=== PATIENT | male | born 1950 | race Caucasian/White ===

== ENCOUNTER 2019-12-11 10:05 | Outpatient (CLI) | payer MEDICARE, OTHER, SELFPAY ==
[2019-12-11 13:24] LABS: Basophils Percent Auto 0.4 % (0.2-1.2); Eosinophils Absolute Auto 0.2 K/mm3 (0-0.3); Eosinophils Percent Auto 2.8 % (0-4.4); Hematocrit 42.7 % (42.0-52.0); Hemoglobin 15.1 g/dL (14.0-18.0); Immature Granulocyte Absolute 0.01 K/mm3 (0.00-0.031); Immature Granulocyte Percent A 0.2 % (0-0.5); Lymphocytes Absolute Auto 1.58 K/mm3 (0.9-3.2); Lymphocytes Percent Auto 29.6 % (18.3-44.2); Mean Corpuscular HGB Conc 35.4 g/dl (32-36); Mean Corpuscular Hemoglobin 34.3 pg (26-34); Monocytes Absolute Auto 0.5 K/mm3 (0.1-0.6); Monocytes Percent Auto 8.6 % (2.6-8.5); Neutrophils Absolute Auto 3.1 K/mm3 (1.3-6.7); Neutrophils Percent Auto 58.4 % (45.5-73.1); Platelet Count Result 200 k/mm3 (150-375); Red Cell Distribution Width 12.4 % (11.5-14.5); White Blood Count 5.3 K/mm3 (4.5-10.0)
[2019-12-11 13:27] LABS: Hemoglobin A1C 5.1 % (<5.7)
== END 2019-12-11 10:06 | disposition home or self-care (01) ==
DX: R79.9 Abnormal finding of blood chemistry, unspecified (principal); I10 Essential (primary) hypertension; Z12.5 Encounter for screening for malignant neoplasm of prostate
CPT/HCPCS: 36415; 83036; 85025

== ENCOUNTER 2019-12-17 15:02 | Outpatient (CLI) | payer MEDICARE, OTHER, SELFPAY ==
[2019-12-17 16:11] LABS: Alanine Aminotransferase 40 U/L (4-50); Albumin Level 4.8 g/dL (3.5-5.1); Alkaline Phosphatase 73 U/L (38-126); Aspartate Amino Transferase 37 U/L (17-59); Blood Urea Nitrogen 25 mg/dL (9-20); Calcium 8.9 mg/dL (8.4-10.2); Carbon Dioxide 25 mmol/L (22-30); Chloride 107 mmol/L (98-107); Estimated Glomerular Filt Rate > 60; Glucose 143 mg/dL (75-110); Potassium 3.6 mmol/L (3.4-5.0); Sodium 140 mmol/L (137-145)
[2019-12-17 16:42] LABS: Prostate Specific Antigen 1.5 ng/mL (< OR = 4.0)
== END 2019-12-17 15:03 | disposition home or self-care (01) ==
DX: I10 Essential (primary) hypertension (principal); Z12.5 Encounter for screening for malignant neoplasm of prostate
CPT/HCPCS: 36415; 80053; 84153; G0103

== ENCOUNTER 2020-04-14 08:12 | Outpatient (CLI) | payer MEDICARE, OTHER, SELFPAY ==
[2020-04-14 08:39] LABS: Alanine Aminotransferase 57 U/L (4-50); Aspartate Amino Transferase 42 U/L (17-59); Cholesterol 211 mg/dL (0-200); HDL Direct 46 mg/dL; Triglycerides 159 mg/dL (<150)
[2020-04-14 08:50] LABS: LDL Cholesterol Direct 133 mg/dL
== END 2020-04-14 08:13 | disposition home or self-care (01) ==
DX: E78.5 Hyperlipidemia, unspecified (principal); I10 Essential (primary) hypertension; I71.2 Thoracic aortic aneurysm, without rupture
CPT/HCPCS: 36415; 80061; 84450; 84460

== ENCOUNTER 2020-12-24 08:37 | Outpatient (CLI) | payer MEDICARE, OTHER, SELFPAY ==
[2020-12-24 08:56] LABS: Hematocrit 45.5 % (42.0-52.0); Hemoglobin 15.9 g/dL (14.0-18.0); Mean Corpuscular HGB Conc 34.9 g/dl (32-36); Mean Corpuscular Hemoglobin 33.8 pg (26-34); Mean Corpuscular Volume 96.8 fl (80-100); Mean Platelet Volume 9.3 fl (7.4-10.4); Platelet Count Result 190 k/mm3 (150-375); Red Cell Distribution Width 12.6 % (11.5-14.5)
[2020-12-24 09:06] LABS: Alanine Aminotransferase 46 U/L (4-50); Albumin Level 4.9 g/dL (3.5-5.1); Alkaline Phosphatase 53 U/L (38-126); Anion Gap 10 mmol/L (8-16); Aspartate Amino Transferase 46 U/L (17-59); Bilirubin,Total 1.3 mg/dL (0.2-1.3); Blood Urea Nitrogen 24 mg/dL (9-20); Calcium 9.5 mg/dL (8.4-10.2); Carbon Dioxide 26 mmol/L (22-30); Chloride 107 mmol/L (98-107); Cholesterol 213 mg/dL (0-200); Estimated Glomerular Filt Rate > 60; Glucose 96 mg/dL (75-110); HDL Direct 56 mg/dL; Potassium 4.6 mmol/L (3.4-5.0); Sodium 143 mmol/L (137-145); Triglycerides 135 mg/dL (<150)
[2020-12-24 09:16] LABS: LDL Cholesterol Direct 106 mg/dL
[2020-12-24 09:36] LABS: Prostate Specific Antigen 1.9 ng/mL (< OR = 4.0)
== END 2020-12-24 08:38 | disposition home or self-care (01) ==
LOC: ANHLAB 08:40
PROVIDERS: PCP Family Medicine; Visit Provider Family Medicine
DX: B19.10 Unspecified viral hepatitis B without hepatic coma (principal); E78.5 Hyperlipidemia, unspecified; R53.83 Other fatigue; Z12.5 Encounter for screening for malignant neoplasm of prostate
CPT/HCPCS: 36415; 80053; 80061; 84153; 85027; G0103

== ENCOUNTER 2021-02-03 08:16 | Outpatient (CLI) | payer MEDICARE, OTHER, SELFPAY ==
[2021-02-03 08:47] LABS: Anion Gap 9 mmol/L (8-16); Blood Urea Nitrogen 18 mg/dL (9-20); Calcium 9.4 mg/dL (8.4-10.2); Carbon Dioxide 26 mmol/L (22-30); Chloride 103 mmol/L (98-107); Estimated Glomerular Filt Rate > 60; Glucose 93 mg/dL (65-110); Potassium 4.4 mmol/L (3.4-5.0); Sodium 138 mmol/L (137-145)
== END 2021-02-03 08:17 | disposition home or self-care (01) ==
LOC: ANHLAB 08:18
PROVIDERS: PCP Family Medicine; Visit Provider Physician Assistant Medical
DX: N28.9 Disorder of kidney and ureter, unspecified (principal)
CPT/HCPCS: 36415; 80048

== ENCOUNTER 2021-04-15 08:11 | Outpatient (CLI) | payer MEDICARE, OTHER, SELFPAY ==
[2021-04-15 11:30] LABS: Alanine Aminotransferase 51 U/L (4-50); Aspartate Amino Transferase 44 U/L (17-59); Cholesterol 226 mg/dL (0-200); HDL Direct 46 mg/dL; Triglycerides 198 mg/dL (<150)
[2021-04-15 11:31] LABS: LDL Cholesterol Direct 115 mg/dL
== END 2021-04-15 08:12 | disposition home or self-care (01) ==
PROVIDERS: PCP Family Medicine
DX: E78.5 Hyperlipidemia, unspecified (principal)
CPT/HCPCS: 36415; 80061; 84450; 84460

== ENCOUNTER 2022-04-07 08:32 | Outpatient (CLI) | payer MEDICARE, OTHER, SELFPAY ==
[2022-04-07 09:27] LABS: Alanine Aminotransferase 57 U/L (6-50); Anion Gap 15 mmol/L (8-16); Aspartate Amino Transferase 42 U/L (17-59); Blood Urea Nitrogen 22 mg/dL (9-20); Calcium 9.1 mg/dL (8.4-10.2); Carbon Dioxide 24 mmol/L (22-30); Chloride 105 mmol/L (98-107); Cholesterol 225 mg/dL (0-200); Estimated Glomerular Filt Rate > 60; Glucose 102 mg/dL (65-110); HDL Direct 49 mg/dL; Potassium 3.9 mmol/L (3.4-5.0); Sodium 144 mmol/L (137-145); Triglycerides 101 mg/dL (<150)
[2022-04-07 09:38] LABS: LDL Cholesterol Direct 126 mg/dL
== END 2022-04-07 08:33 | disposition home or self-care (01) ==
LOC: ANHLAB 08:36
PROVIDERS: PCP Family Medicine; Visit Provider Internal Medicine Cardiovascular Disease
DX: E78.5 Hyperlipidemia, unspecified (principal); I10 Essential (primary) hypertension; I35.9 Nonrheumatic aortic valve disorder, unspecified
CPT/HCPCS: 36415; 80048; 80061; 84450; 84460

== ENCOUNTER 2022-07-04 08:15 | Outpatient (CLI) | payer MEDICARE, OTHER, SELFPAY ==
[2022-07-04 08:32] LABS: Hematocrit 42.6 % (42.0-52.0); Hemoglobin 15.3 g/dL (14.0-18.0); Mean Corpuscular HGB Conc 35.9 g/dl (32-36); Mean Corpuscular Hemoglobin 33.9 pg (26-34); Mean Corpuscular Volume 94.5 fl (80-100); Platelet Count Result 184 k/mm3 (150-375); Red Blood Count 4.51 M/mm3 (4.6-6.20); Red Cell Distribution Width 12.4 % (11.5-14.5); White Blood Count 6.5 K/mm3 (4.5-10.0)
[2022-07-04 08:40] LABS: Anion Gap 5 mmol/L (8-16); Blood Urea Nitrogen 17 mg/dL (9-20); Calcium 8.8 mg/dL (8.4-10.2); Carbon Dioxide 29 mmol/L (22-30); Chloride 109 mmol/L (98-107); Estimated Glomerular Filt Rate > 60; Glucose 101 mg/dL (65-110); Potassium 4.3 mmol/L (3.4-5.0); Sodium 143 mmol/L (137-145)
[2022-07-04 09:11] LABS: Prostate Specific Antigen 1.8 ng/mL (< OR = 4.0)
[2022-07-04 09:26] LABS: Vitamin D 25 Hydroxy 52.1 ng/mL
== END 2022-07-04 08:16 | disposition home or self-care (01) ==
PROVIDERS: PCP Family Medicine; Visit Provider Family Medicine
DX: N28.9 Disorder of kidney and ureter, unspecified (principal); E55.9 Vitamin D deficiency, unspecified; Z12.5 Encounter for screening for malignant neoplasm of prostate
CPT/HCPCS: 36415; 80048; 82306; 84153; 85027; G0103

== ENCOUNTER 2023-04-17 08:10 | Outpatient (CLI) | payer MEDICARE, OTHER, SELFPAY ==
[2023-04-17 09:17] LABS: Anion Gap 4 mmol/L (8-16); Blood Urea Nitrogen 20 mg/dL (9-20); Carbon Dioxide 29 mmol/L (22-30); Chloride 106 mmol/L (98-107); Cholesterol 203 mg/dL (0-200); Estimated Glomerular Filt Rate > 60; Glucose 99 mg/dL (65-110); HDL Direct 46 mg/dL; Potassium 4.2 mmol/L (3.4-5.0); Sodium 139 mmol/L (137-145); Triglycerides 142 mg/dL (<150)
[2023-04-17 09:28] LABS: LDL Cholesterol Direct 116 mg/dL
== END 2023-04-17 08:11 | disposition home or self-care (01) ==
PROVIDERS: PCP Family Medicine; Visit Provider Internal Medicine Cardiovascular Disease
DX: I71.20 Thoracic aortic aneurysm, without rupture, unspecified (principal); I10 Essential (primary) hypertension
CPT/HCPCS: 36415; 80048; 80061

== ENCOUNTER 2023-04-19 14:54 | Outpatient (CLI) | payer MEDICARE, OTHER, SELFPAY ==
--- NOTE | ~2023-04-19 | XR_ITS ---
XR foot RT min 3V 04/19/2023 15:10 Indication: Dorsal foot swelling. Foreign body Procedure: 4 views right foot Comparison: No prior studies for comparison. Findings: Osteopenia. 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 Lisfranc join t is intact. There is a degenerative calcaneal enthesophyte. Talar dome is normal. No significant sof t tissue abnormality. Impression: 1: No significant bone or joint abnormality. Reviewed, dictated and finalized at location A. Impression: 1: No significant bone or joint abnormality.
== END 2023-04-19 14:55 | disposition home or self-care (01) ==
PROVIDERS: PCP Family Medicine; Visit Provider Nurse Practitioner Family
DX: M79.5 Residual foreign body in soft tissue (principal)
CPT/HCPCS: 73630

== ENCOUNTER 2023-12-06 08:05 | Outpatient (CLI) | payer MEDICARE, OTHER, SELFPAY ==
[2023-12-06 09:02] LABS: Hematocrit 42.9 % (42.0-52.0); Mean Corpuscular Hemoglobin 33.9 pg (26-34); Mean Corpuscular Volume 97.1 fl (80-100); Mean Platelet Volume 9.9 fl (7.4-10.4); Platelet Count Result 185 k/mm3 (150-375); Red Blood Count 4.42 M/mm3 (4.6-6.20); Red Cell Distribution Width 12.4 % (11.5-14.5); White Blood Count 5.5 K/mm3 (4.5-10.0)
[2023-12-06 09:12] LABS: Alanine Aminotransferase 52 U/L (6-50); Albumin Level 4.8 g/dL (3.5-5.1); Alkaline Phosphatase 62 U/L (38-126); Anion Gap 8 mmol/L (4-12); Aspartate Amino Transferase 41 U/L (17-59); Bilirubin,Total 1.2 mg/dL (0.2-1.3); Blood Urea Nitrogen 23 mg/dL (9-20); Carbon Dioxide 24 mmol/L (22-30); Chloride 108 mmol/L (98-107); Cholesterol 208 mg/dL (0-200); Estimated Glomerular Filt Rate > 60; Glucose 97 mg/dL (65-110); HDL Direct 53 mg/dL; Potassium 4.1 mmol/L (3.4-5.0); Sodium 140 mmol/L (137-145); Triglycerides 108 mg/dL (<150)
[2023-12-06 09:23] LABS: LDL Cholesterol Direct 128 mg/dL
[2023-12-06 09:40] LABS: Prostate Specific Antigen 2.8 ng/mL (< OR = 4.0)
== END 2023-12-06 08:06 | disposition home or self-care (01) ==
PROVIDERS: PCP Family Medicine; Visit Provider Family Medicine
DX: Z12.5 Encounter for screening for malignant neoplasm of prostate (principal); E78.2 Mixed hyperlipidemia; N28.9 Disorder of kidney and ureter, unspecified; N40.0 Benign prostatic hyperplasia without lower urinary tract symptoms; Z13.220 Encounter for screening for lipoid disorders
CPT/HCPCS: 36415; 80048; 80061; 80076; 84153; 85027; G0103

== ENCOUNTER 2024-01-29 11:09 | Outpatient (CLI) | payer MEDICARE, OTHER, SELFPAY ==
[2024-01-29 12:04] LABS: Alanine Aminotransferase 54 U/L (6-50); Albumin Level 4.7 g/dL (3.5-5.1); Alkaline Phosphatase 63 U/L (38-126); Aspartate Amino Transferase 41 U/L (17-59); Bilirubin,Total 0.9 mg/dL (0.2-1.3)
[2024-01-29 12:30] LABS: Hepatitis B Surface Antigen Negative (Negative)
[2024-01-29 12:36] LABS: HAV RESULT Negative (Negative); Hepatitis B Core IgM Result Negative (Negative)
[2024-01-29 12:48] LABS: Hepatitis C Virus Antibody Negative (Negative)
[2024-02-01 09:08] LABS: GGT 55 U/L
== END 2024-01-29 11:10 | disposition home or self-care (01) ==
LOC: ANHLAB 11:14
PROVIDERS: PCP Family Medicine; Visit Provider Family Medicine
DX: R74.01 Elevation of levels of liver transaminase levels (principal); R53.83 Other fatigue
CPT/HCPCS: 36415; 80074; 80076; 82977

== ENCOUNTER 2024-08-18 06:19 | Day surgery (SDC) | payer MEDICARE, OTHER, SELFPAY ==
[2024-07-29 09:08] VITALS: BMI 31.2
--- NOTE | 2024-07-30 10:32 | PC.NURSE ---
During pre-op interview regarding colonoscopy scheduled at [facility] 08/18/24, Pt states PMH to be HTN, high cholesterol, and ascending aortic aneurysm. Pt states had yearly visit with rehabilitation consultant last month and that scan showed no changes to aneurysm size. Pt states it has stayed the same over the years and rehabilitation consultant is monitoring it. No plans for surgery at this time. Pt denies cardiac symptoms. Pt states stopped taking his Ramipril and Pravastatin because he does not believe he needs it. Records from rehabilitation consultant obtained. This RN went over records and pt's pre-op interview information with Dr. Elias who states pt okay to have colonoscopy done at [facility]. This RN informed pt of this and he states no further questions.
--- OUTSIDE RECORDS SUMMARY | 2024-08-18 07:02 | XMS_ITS | Encounter Summary ---
Author Organization [facility] Address [address] [place] [address] Care Team Providers Care Varnisher Plasticoater Name Role Phone Unavailable Primary Care Provider Unavailabl e Encounter Details Date Type Department Care Team (Late st Contact Info) Description 07/05/2023 Lab Requisition [facility] - DermPath Lab [address] [place] [address] Lexii Abbott MD [address] [place] [address] [place] [address] Neoplasm of uncertain behavior of skin; Other disturbances of skin sensation Social History Tobacco Use Types Packs/Day Years Used Date Smoking Tobacco: Never Assessed Sex and Gender Information Value Date Recorded Sex Assigned at Not on file Gender Identity Not on file Sexual Orientation Not on file documented as of this encounter Plan of Treatment Not on file documented as of this encounter Procedures Procedure Name Priority Date/Time Associated Diagnosis Comments DERMATOPATHOLOGY Routine 07/05/2023 3:33 AM FOUR SLIDE MACHINE OPERATOR Neoplasm of uncertain behavior of skin Other disturbances of skin sensation documented in this encounter Results * DERMATOPATHOLOGY (07/05/2023 3:33 AM FOUR SLIDE MACHINE OPERATOR) Case Report Dermatopathology Report Case: [id number] Authorizing Provider: Lexii Abbott MD Collected: 07/05/2023 03:33 AM Ordering Location: [facility] DermPath Lab Received: 07/06/2023 01:09 PM Pathologist: Trudy Yeung MD Specimen: Skin, right dorsal foot 12:43 PM FOUR SLIDE MACHINE OPERATOR DERMATOPATHOLOGY LABORATORY Final Diagnosis Specimen A. SKIN, right dorsal foot: GANGLION CYST, SUPERFICIAL PORTIONS OF (M67.40) (see microscopic description) 12:43 PM [facility] DERMATOPATHOLOGY LABORATORY Clinical History Ganglion Cyst 4 12:43 PM [facility] DERMATOPATHOLOGY LABORATORY Gross Description Specimen A: Received is one formalin filled container labeled with the patient's name and designated right dorsal foot. The specimen consists of two (2) pieces of skin measuring 17x6x3 mm. The specimen is serially sectioned and a senior customer service representative section is submitted in cassette 1. Jar 1. 4 12:43 PM [facility] DERMATOPATHOLOGY LABORATORY Microscopic Description Specimen A. SKIN, right dorsal foot: In the dermis, there is a deposit of mucin surrounded by superficial portions of compressed fibrous tissue. 4 12:43 PM [facility] DERMATOPATHOLOGY LABORATORY Disclaimer An external and internal positive and negative controls are appropriate for the histochemical, immunohistochemical and immunofluorescence stain(s) in this case (if any), except where stated explicitly. The performance characteristics of the stain(s) cited in this report were developed and its performance characteristic determined by the Dermatopathology Laboratory at [facility], directed by Dr. Adrian Dunbar. These tests need not be, and therefore are not, approved by the [place] Food and Drug Administration. The tests are used for clinical purposes. Billing Codes Specimen Charges Stain Charges 78269 1 4 12:43 PM [facility] DERMATOPATHOLOGY LABORATORY Embedded Images 12:43 PM [facility] DERMATOPATHOLOGY LABORATORY Pathology/Cytolo gy TISSUE SPECIMEN FROM SKIN / Unknown 07/05/2023 3:33 AM FOUR SLIDE MACHINE OPERATOR 07/06/2023 1:09 PM FOUR SLIDE MACHINE OPERATOR Lexii Abbott MD LAB - PATHOLOGY/CYTO LOGY ORDERABLES DERMATOPATHOLOGY LABORATORY [facility] - Department of Dermatology [address], [address] [phone] documented in this encounter Visit Diagnoses Diagnosis Neoplasm of uncertain behavior of skin Other disturbances of skin sensation documented in this encounter
--- OUTSIDE RECORDS SUMMARY | 2024-08-18 07:02 | XMS_ITS | Clinical Summary ---
Author Organization [facility] Address [address] [place] [address] Care Team Providers Care Groover And Turner Name Role Phone Ben Flowers MD Unavailable [phone] Ben Flowers MD Primary Care Provider [phone] Allergies Active Allergy Reactions Criticality Noted Date Comments Wild Briceno 11/05/2023 Medications tamsulosin (FLOMAX) 0.4 MG Cap Take 1 capsule (0.4 mg total) by mouth daily. Active Ascorbic Acid (VITAMIN C) 100 MG tablet Take 2.5 tablets (250 mg total) by mouth daily. Active Cyanocobalamin (B-12) 2000 MCG Tab Active vitamin D3, cholecalciferol , 125 mcg capsule Take 1 capsule (125 mcg total) by mouth daily. Active Multiple Vitamin (MULTIVITAMIN ADULT OR) Take 1 tablet by mouth daily. Active HYDROcodone-mihai taminophen (NORCO) 5-325 MG tabletIndicatio ns:Acute Pain < 7 Day Supply Take 1 tablet by mouth every 6 (six) hours as needed for Pain. Indications: Acute Pain < 7 Day Supply 20 tablet 11/13/2023 Active ibuprofen (MOTRIN) 800 MG tablet Take 1 tablet (800 mg total) by mouth every 8 (eight) hours as needed for Pain. 30 tablet 11/13/2023 Active Active Problems No known active problems Social History Tobacco Use Types Packs/Day Years Used Date Smoking Tobacco: Never Smokeless Tobacco: Never Tobacco Cessation:Counseling Given: Not Answered Alcohol Use Standard Drinks/Week Comments Not Currently 0 (1 standard drink = 0.6 oz pur e alcohol) socially Sex and Gender Information Value Date Recorded Sex Assigned at Not on file Legal Sex Male 12:40 PM CDT Gender Identity Not on file Sexual Orientation Not on file Last Filed Vital Signs Vital Sign Reading Time Taken Comments Blood Pressure 154/89 11/13/2023 10:40 AM CDT Pulse 60 11/13/2023 10:40 AM CDT Temperature 36.2 C (97.1 F) 11/13/2023 10:40 AM CDT Respiratory Rate 18 11/13/2023 10:4 0 AM CDT Oxygen Saturation 98% 11/13/2023 10: 40 AM CDT Inhaled Oxygen Concentration - - Weight 104.2 kg (229 lb 11.5 oz) 11/13/2023 7:45 AM CDT Height 182.9 cm (6') 11/05/2023 12:43 PM CDT Body Mass Index 31.16 11/05/2023 12:43 PM CDT Plan of Treatment Health Maintenance Due Date Last Done Comments Colorectal Cancer Screening Colonoscopy (10 Years) 1952 Hepatitis C 1970 DTaP, Tdap and Td Vaccines ( 1 - Tdap) 1971 Zoster Vaccines (1 of 2) 2002 Annual Medicare Wellness Visit 2017 Pneumococcal Vaccine: 65+ Ye ars (1 of 1 - PCV) 2017 COVID-19 Vaccine ( - 2023-2 5 season) 2024 Influenza Adult (#1) 2024 RSV Immunization or 60+ Years (1 - 1-dose 75+ series) 2027 Meningococcal B Vaccine Aged Out No l onger eligible based on patient's age to complete this topic Meningococcal Vaccine Aged Out No kala marianne eligible based on patient's age to complete this topic RSV Immunizations Under 20 Months Aged Out No longer eligible based on patient's age to complete this topic Insurance [facility] MEDICARE Care Teams Groover And Turner Relationship Specialty Start Date End Date Ben Flowers MD [address] [place] [address] PCP - General FAMILY PRACTICE 11/13/23 Ben Flowers MD [address] [address] FAMILY PRACTICE 11/05/23
--- OUTSIDE RECORDS SUMMARY | 2024-08-18 07:02 | XMS_ITS | Continuity of Care Document ---
Author Organization [facility] Address [address] [place] [address] Phone Care Team Providers Care Loom Mechanic Name Role Phone Nolvia Medellin MD Unavailable Unavailable Advance Directives Directive Yes / No Effective Date File Name No Information Encounters Encounter Description Practice Location Reason(s) For Visit Diagnoses Date Provider Providers Copied on Encounter [facility], [address], [place], [place], [id number], tel:[phone] [facility] No Information Lacie De Souza. [address] [place] [address], [id number], . tel:[phone] Family History Family Member Type Diagnosis Age At Onset No Information Payers Payer name Insurance type Covered republican ID Authoriza tion(s) MEDICARE [id number] Social History Type Description Quantity Date Captured [...]
--- OUTSIDE RECORDS SUMMARY | 2024-08-18 07:02 | XMS_ITS | Referral Summary ---
Author Organization [facility] Address [address] [place] [address] Care Team Providers Care Auto Service Mechanic Name Role Phone Unavailable Primary Care Provider Unavailabl e Source Comments [facility],non-owned Affiliates and Associated Physician Practices is amultiple site organization consisting of ambulatory clinics and hospital sitesin [place], [place], [place] and [place]. This disclosure is being madepursuant to the Care Everywhere program and may not contain all information available regarding this patient. Last updated 18.[facility] [employer] Social History Tobacco Use Types Packs/Day Years Used Date Smoking Tobacco: Never Assessed Sex and Gender Information Value Date Recorded Sex Assigned at Not on file Gender Identity Not on file Sexual Orientation Not on file Plan of Treatment Not on file
--- OUTSIDE RECORDS SUMMARY | 2024-08-18 07:02 | XMS_ITS | Clinical Summary ---
Author Organization [facility] Address [address] [place] [address] Care Team Providers Care Project Management Professional Name Role Phone Unavailable Primary Care Provider Unavailabl e Source Comments [facility],non-owned Affiliates and Associated Physician Practices is amultiple site organization consisting of ambulatory clinics and hospital sitesin [place], [place], [place] and [place]. This disclosure is being madepursuant to the Care Everywhere program and may not contain all information available regarding this patient. Last updated 18.[facility] Social History Tobacco Use Types Packs/Day Years Used Date Smoking Tobacco: Never Assessed Sex and Gender Information Value Date Recorded Sex Assigned at Not on file Gender Identity Not on file Sexual Orientation Not on file Plan of Treatment Health Maintenance Due Date Last Done Comments COLOGUARD (AGES 45-75) - COL ON CA SCREENING 1952 COLON MONITORING 1952 COLONOSCOPY - COLON CA SCREENING 1952 CT COLONOGRAPHY - COLON CA SCREENING 1952 Colorectal Cancer Screening 1952 FIT - COLON CA SCREENING 1952 FLEX SIG - COLON CA SCREENING 1952 LIPID TESTING 1952 MEDICARE AWV 12 MONTHS 1952 HEPATITIS C SCREENING 03/25/1970 DTAP/TDAP/TD VACCINES (1 - Tdap) 1971 PNEUMOCOCCAL VACCINE 50+ (1 of 1 - PCV) 2002 ZOSTER VACCINE (1 of 2) 2002 COVID-19 VACCINE ( - 2023-2 5 season) 2024 INFLUENZA VACCINE (#1) 2024 DEPRESSION SCREENING 07/09/2024 Respiratory Syncytial Virus (RSV) Vaccine Pt: or over 60 yrs (1 - 1-dose 75+ series) 2027 HEPATITIS B VACCINE Aged Out No longe r eligible based on patient's age to complete this topic HIB VACCINE Aged Out No longer eligi ble based on patient's age to complete this topic HPV VACCINE Aged Out No longer eligi ble based on patient's age to complete this topic MENINGOCOCCAL (Group B) VACCINE Aged Out No longer eligible based on patient's age to complete this topic MENINGOCOCCAL VACCINE Aged Out No kala marianne eligible based on patient's age to complete this topic
--- OUTSIDE RECORDS SUMMARY | 2024-08-18 07:02 | XMS_ITS | Patient Health Summary ---
Author Organization [facility] Address [address] [place] [address] Care Team Providers Care Complaint Specialist Name Role Phone Unavailable Primary Care Provider Unavailabl e Note from [facility],non-owned Affiliates and Associated Physician Practices is amultiple site organization consisting of ambulatory clinics and hospital sitesin [place], [place], [place] and [place]. This disclosure is being madepursuant to the Care Everywhere program and may not contain all information available regarding this patient. Last updated 18.[facility] Social History Tobacco Use Types Packs/Day Years Used Date Smoking Tobacco: Never Assessed Sex and Gender Information Value Date Recorded Sex Assigned at Not on file Gender Identity Not on file Sexual Orientation Not on file Procedures * DERMATOPATHOLOGY(Performed 07/05/2023) Performed for Neoplasm of uncertain behavior of skin, Other disturbances of skin sensation Results * DERMATOPATHOLOGY (07/05/2023 3:33 AM EARLY CHILDHOOD AIDE CLASSROOM) Case Report Dermatopathology Report Case: [id number] Authorizing Provider: Lexii Abbott MD Collected: 07/05/2023 03:33 AM Ordering Location: [facility] DermPath Lab Received: 07/06/2023 01:09 PM Pathologist: Trudy Yeung MD Specimen: Skin, right dorsal foot 12:43 PM [facility] DERMATOPATHOLOGY LABORATORY Final Diagnosis Specimen A. SKIN, right dorsal foot: GANGLION CYST, SUPERFICIAL PORTIONS OF (M67.40) (see microscopic description) 12:43 PM EARLY CHILDHOOD AIDE CLASSROOM DERMATOPATHOLOGY LABORATORY Clinical History Ganglion Cyst 12:43 PM [facility] DERMATOPATHOLOGY LABORATORY Gross Description Specimen A: Received is one formalin filled container labeled with the patient's name and designated right dorsal foot. The specimen consists of two (2) pieces of skin measuring 17x6x3 mm. The specimen is serially sectioned and a provider service representative section is submitted in cassette 1. Jar 1. 4 12:43 PM [facility] DERMATOPATHOLOGY LABORATORY Microscopic Description Specimen A. SKIN, right dorsal foot: In the dermis, there is a deposit of mucin surrounded by superficial portions of compressed fibrous tissue. 4 12:43 PM [facility] DERMATOPATHOLOGY LABORATORY Disclaimer An external and internal positive and negative controls are appropriate for the histochemical, immunohistochemical and immunofluorescence stain(s) in this case (if any), except where stated explicitly. The performance characteristics of the stain(s) cited in this report were developed and its performance characteristic determined by the Dermatopathology Laboratory at [facility], directed by Dr. Adrian Dunbar. These tests need not be, and therefore are not, approved by the [place] Food and Drug Administration. The tests are used for clinical purposes. Billing Codes Specimen Charges Stain Charges 50318 1 4 12:43 PM [facility] DERMATOPATHOLOGY LABORATORY Embedded Images 4 12:43 PM [facility] DERMATOPATHOLOGY LABORATORY Pathology/Cytolo gy TISSUE SPECIMEN FROM SKIN / Unknown 07/05/2023 3:33 AM EARLY CHILDHOOD AIDE CLASSROOM 07/06/2023 1:09 PM EARLY CHILDHOOD AIDE CLASSROOM Lexii Abbott MD LAB - PATHOLOGY/CYTO LOGY ORDERABLES DERMATOPATHOLOGY LABORATORY [facility] - Department of Dermatology [facility] [address] [place] [address], [address] [phone]
[2024-08-18 07:14] VITALS: BP 124/72; PULSE 77; RESP 16; TEMP 36.8; O2SAT 98
[2024-08-18] MEDS: LACTATED RINGERS 1,000 ML 150 ML IV CONT (07:17)
--- NOTE | 2024-08-18 07:25 | P.PNAN_ITS ---
Anes - Initial Pre Proc Eval Procedure: Operation Date: 08/18/24 08:30 Proposed Procedures p Screening Colonoscopy - Alfredo Tomlinson MD Date/Time: 08/18/24 07:25 Surgeon: Alfredo Tomlinson MD Pre Op Diagnosis: Neoplasm Screening Patient Data Age: 74 Gender: M Height: 1.82 m Weight: 102.5 kg Last Vital Signs Temp 36.8 C 08/18/24 07:14 Pulse 77 08/18/24 07:14 Resp 16 08/18/24 07:14 BP 124/72 08/18/24 07:14 Pulse Ox 98 08/18/24 07:14 O2 Del Method Room Air 08/18/24 07:14 Allergies Allergy/AdvReac Type Severity Reaction Status Date / Time codeine Allergy Unknown Hives / Verified 08/18/24 07:12 Red Face Home Medications ?Medication ?Instructions ?Recorded ?Confirmed ?Type tamsulosin 0.4 mg capsule (Flomax) 0.4 mg PO DAILY #90 caps 06/08/24 08/18/24 Rx aspirin 81 mg capsule 81 mg PO DAILY 07/30/24 08/18/24 History multivitamin (Daily Multi-Vitamin 1 tablet PO DAILY 07/30/24 08/18/24 History tablet) Patient hx anesthesia problems: none Family hx anesthesia problems: none Results Review: All pre-operative results and documents have been reviewed as part of the pre- operative evaluation. [facility] Past Medical History Medical History Elevated ALT measurement Low back pain Changing skin lesion Mixed hyperlipidemia BPH (benign prostatic hyperplasia) Screening for prostate cancer Fatigue BMI 31.0-31.9,adult Thoracic aortic aneurysm Hepatitis B Skin cancer Family History Family History Father Stomach cancer Mother Bladder cancer Tobacco abuse Sibling No problems noted. Sibling , Parkinson's disease No problems noted. Other Asthma Hypertension Social History Social History Smoking status: Never smoker Second hand tobacco smoke exposure: Yes Alcohol intake: current Alcohol use details: 0-5 Substance use: never Substance use type: does not use Do You Feel Safe in your Home?: Yes Lack of Transportation: No Lack of Food: Never True Current Housing: I Have Housing Concerned About Future Housing: No Difficulty Paying Gas/Electric Bills: No Difficulty Paying for Meds: No Currently Unemployed: No Education: High School Diploma/GED Difficulty w/ Childcare or Family Care: No Living arrangements: with family Occupation/Education: retired Additional occupation/education comments: [employer] Final PreProcedure Day of Procedure 08/18/24 07:25 Patient weight: obese Heart: bradycardia Lungs: clear to auscultation Airway: Mallampati scale class II Neurological: alert and oriented Last oral intake: >/= 8 hours ASA classification: III Emergent: no Anesthetic plan: proceed Anesthesia type and monitoring: general GIVS and standard monitoring Results Review: All pre-operative results and documents have been reviewed as part of the pre- operative evaluation. Informed Consent: The patient's anesthetic plan and its attendant risks and benefits were discussed with the patient/family/POA. Questions were solicited and answers provided to the satisfaction of the patient/family/POA.
--- NOTE | 2024-08-18 08:18 | P.HP_ITS ---
H&P: HPI History of Present Illness Date/Time: 08/18/24 08:18 Chief Complaint: Screening colonoscopy Narrative: This is the patient's 3rd colonoscopy. There are no GI symptoms and there is no family history of colorectal cancer. Review of Systems Review of Systems: All systems reviewed & are unremarkable except as noted in HPI and below PMFSH Past Medical History Medical History Elevated ALT measurement Low back pain Changing skin lesion Mixed hyperlipidemia BPH (benign prostatic hyperplasia) Screening for prostate cancer Fatigue BMI 31.0-31.9,adult Thoracic aortic aneurysm Hepatitis B Skin cancer Family History Family History Father Stomach cancer Mother Bladder cancer Tobacco abuse Sibling No problems noted. Sibling , Parkinson's disease No problems noted. Other Asthma Hypertension Social History Social History Smoking status: Never smoker Second hand tobacco smoke exposure: Yes Alcohol intake: current Alcohol use details: 0-5 Substance use: never Substance use type: does not use Do You Feel Safe in your Home?: Yes Lack of Transportation: No Lack of Food: Never True Current Housing: I Have Housing Concerned About Future Housing: No Difficulty Paying Gas/Electric Bills: No Difficulty Paying for Meds: No Currently Unemployed: No Education: High School Diploma/GED Difficulty w/ Childcare or Family Care: No Living arrangements: with family Occupation/Education: retired 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 Medications and Allergies Home Medications ?Medication ?Instructions ?Recorded ?Confirmed ?Type tamsulosin 0.4 mg capsule (Flomax) 0.4 mg PO DAILY #90 caps 06/08/24 08/18/24 Rx aspirin 81 mg capsule 81 mg PO DAILY 07/30/24 08/18/24 History multivitamin (Daily Multi-Vitamin 1 tablet PO DAILY 07/30/24 08/18/24 History tablet) Allergies Allergy/AdvReac Type Severity Reaction Status Date / Time codeine Allergy Unknown Hives / Verified 08/18/24 07:12 Red Face Vital Signs Vital Signs - 24 hr 08/18/24 07:14 Temperature 98.3 F Pulse Rate 77 Respiratory Rate 16 Blood Pressure 124/72 Pulse Oximetry 98 Oxygen Delivery Room Air Exam Const: General: cooperative and healthy appearing Resp: Effort & Inspection: normal respiratory effort and able to speak in complete sentences Auscultation: clear to auscultation bilaterally Cardio: Rate: regular rate Rhythm: regular rhythm GI: Inspection: normal to inspection GI Palp: No No hepatosplenomegaly present Auscultation: normal bowel sounds Rectal Exam: deferred Skin: General skin exam: normal color Psych: Appearance: grossly normal Mental Status: mental status grossly nor mal Assessment and Plan Assessment and plan (1) Encounter for screening colonoscopy: Code(s): Z12.11 - Encounter for screening for malignant neoplasm of colon Status: Acute Assessment and Plan: The patient is deemed a good candidate for the procedure. Consent signed. Will proceed.
[2024-08-18 08:49] VITALS: BP 95/74; PULSE 74; RESP 18; O2SAT 96
[2024-08-18 08:59] VITALS: BP 93/73; PULSE 77; RESP 18; O2SAT 95
[2024-08-18 09:09] VITALS: BP 107/66; PULSE 78; RESP 18; O2SAT 95
--- NOTE | 2024-08-18 09:24 | WPDANESPN ---
Anes - Prog Note Post-Op Date/Time: 08/18/24 09:24 Cardiovascular status: normal Respiratory status: normal Airway patency: baseline Mental status: baseline Vital Signs: Last Vital Signs Temp 36.8 C 08/18/24 07:14 Pulse 78 08/18/24 09:09 Resp 18 08/18/24 09:09 BP 107/66 08/18/24 09:09 Pulse Ox 95 08/18/24 09:09 O2 Del Method Room Air 08/18/24 09:09 Pain Score (VAS): 0/10 I/O: Intake & Output 08/17/24 08/18/24 08/18/24 23:59 07:59 15:59 Intake Total 400 Balance 400 Patient Feedback: Patient satisfied with anesthetic care.
== END 2024-08-18 09:35 | disposition home or self-care (01) ==
PROVIDERS: PCP Family Medicine; Visit Provider Internal Medicine Gastroenterology
PROC: 0DJD8ZZ Inspection of Lower Intestinal Tract, Via Natural or Artificial Opening Endoscopic (ICD-10-PCS; CPT 45378; principal; 2024-08-18 08:30)
DX: Z12.11 Encounter for screening for malignant neoplasm of colon (principal); D12.0 Benign neoplasm of cecum
CPT/HCPCS: 45385

== ENCOUNTER 2024-08-18 11:57 | Outpatient (NON) | payer MEDICARE, OTHER, SELFPAY ==
--- OUTSIDE RECORDS SUMMARY | 2024-08-19 13:08 | XMS_ITS | Patient Health Summary ---
Author Organization [facility] Address [address] [place] [address] Care Team Providers Care Surgical Technician Name Role Phone Unavailable Primary Care Provider Unavailabl e Note from [facility] [place],non-owned Affiliates and Associated Physician Practices is amultiple site organization consisting of ambulatory clinics and hospital sitesin [place], [place], [place] and [place]. This disclosure is being madepursuant to the Care Everywhere program and may not contain all information available regarding this patient. Last updated 18.[facility] Social History Tobacco Use Types Packs/Day Years Used Date Smoking Tobacco: Never Assessed Sex and Gender Information Value Date Recorded Sex Assigned at Not on file Gender Identity Not on file Sexual Orientation Not on file Procedures * DERMATOPATHOLOGY(Performed 07/05/2023) Performed for Neoplasm of uncertain behavior of skin, Other disturbances of skin sensation Results * DERMATOPATHOLOGY (07/05/2023 3:33 AM SHANK TAPER) Case Report Dermatopathology Report Case: [id number] Authorizing Provider: Lexii Abbott MD Collected: 07/05/2023 03:33 AM Ordering Location: [facility] DermPath Lab Received: 07/06/2023 01:09 PM Pathologist: Trudy Yeung MD Specimen: Skin, right dorsal foot 12:43 PM [facility] DERMATOPATHOLOGY LABORATORY Final Diagnosis Specimen A. SKIN, right dorsal foot: GANGLION CYST, SUPERFICIAL PORTIONS OF (M67.40) (see microscopic description) 12:43 PM SHANK TAPER DERMATOPATHOLOGY LABORATORY Clinical History Ganglion Cyst 12:43 PM [facility] DERMATOPATHOLOGY LABORATORY Gross Description Specimen A: Received is one formalin filled container labeled with the patient's name and designated right dorsal foot. The specimen consists of two (2) pieces of skin measuring 17x6x3 mm. The specimen is serially sectioned and a regional sales representative section is submitted in cassette 1. Jar 1. 4 12:43 PM [facility] DERMATOPATHOLOGY LABORATORY Microscopic Description Specimen A. SKIN, right dorsal foot: In the dermis, there is a deposit of mucin surrounded by superficial portions of compressed fibrous tissue. 4 12:43 PM [facility] DERMATOPATHOLOGY LABORATORY Disclaimer An external and internal positive and negative controls are appropriate for the histochemical, immunohistochemical and immunofluorescence stain(s) in this case (if any), except where stated explicitly. The performance characteristics of the stain(s) cited in this report were developed and its performance characteristic determined by the Dermatopathology Laboratory at [facility], directed by Dr. Adrian Dunbar. These tests need not be, and therefore are not, approved by the [place] Food and Drug Administration. The tests are used for clinical purposes. Billing Codes Specimen Charges Stain Charges 48733 1 4 12:43 PM [facility] DERMATOPATHOLOGY LABORATORY Embedded Images 4 12:43 PM [facility] DERMATOPATHOLOGY LABORATORY Pathology/Cytolo gy TISSUE SPECIMEN FROM SKIN / Unknown 07/05/2023 3:33 AM SHANK TAPER 07/06/2023 1:09 PM SHANK TAPER Lexii Abbott MD LAB - PATHOLOGY/CYTO LOGY ORDERABLES DERMATOPATHOLOGY LABORATORY [facility] - Department of Dermatology [facility] Medicine [address] [place] [address], [address] [phone]
--- OUTSIDE RECORDS SUMMARY | 2024-08-19 13:08 | XMS_ITS | Clinical Summary ---
Author Organization [facility] Address [address] [place] [address] Care Team Providers Care K 9 Police Officer Name Role Phone Unavailable Primary Care Provider Unavailabl e Source Comments [facility],non-owned Affiliates and Associated Physician Practices is amultiple site organization consisting of ambulatory clinics and hospital sitesin [place], [place], [place] and [place]. This disclosure is being madepursuant to the Care Everywhere program and may not contain all information available regarding this patient. Last updated 18.[facility] Social History Tobacco Use Types Packs/Day Years [...]
--- OUTSIDE RECORDS SUMMARY | 2024-08-19 13:08 | XMS_ITS | Clinical Summary ---
Author Organization [facility] Address [address] [place] [address] Care Team Providers Care Offset Press Assistant Name Role Phone Ben Flowers MD Unavailable [phone] Ben Flowers MD Primary Care Provider [phone] Allergies Active Allergy Reactions Criticality Noted Date [...] patient's age to complete this topic Insurance [facility] MEDICARE Care Teams Offset Press Assistant Relationship Specialty Start Date End Date Ben Flowers MD [address] [place] [address] PCP - General FAMILY PRACTICE 11/13/23 Ben Flowers MD [address] [address] FAMILY PRACTICE 11/05/23
--- OUTSIDE RECORDS SUMMARY | 2024-08-19 13:08 | XMS_ITS | Encounter Summary ---
Author Organization [facility] Address [address] [place] [address] Care Team Providers Care Parts Salesman Name Role Phone Unavailable Primary Care Provider Unavailabl e Encounter Details Date Type Department Care Team (Late st Contact Info) Description 07/05/2023 Lab Requisition [facility] - DermPath Lab [address] [place] [address] Lexii Abbott MD [address] [place] [address] [place] [address] Neoplasm of uncertain behavior of [...] Diagnosis Comments DERMATOPATHOLOGY Routine 07/05/2023 3:33 AM BEVERAGE INSPECTION MACHINE TENDER Neoplasm of uncertain behavior of skin Other disturbances of skin sensation documented in this encounter Results * DERMATOPATHOLOGY (07/05/2023 3:33 AM BEVERAGE INSPECTION MACHINE TENDER) Case Report Dermatopathology Report Case: [id number] Authorizing Provider: Lexii Abbott MD Collected: 07/05/2023 03:33 AM Ordering Location: [facility] DermPath Lab Received: 07/06/2023 01:09 PM Pathologist: Trudy Yeung MD Specimen: Skin, right dorsal foot 12:43 PM BEVERAGE INSPECTION MACHINE TENDER DERMATOPATHOLOGY LABORATORY Final Diagnosis Specimen A. SKIN, right dorsal foot: GANGLION CYST, SUPERFICIAL PORTIONS OF (M67.40) (see microscopic description) 12:43 PM [facility] DERMATOPATHOLOGY LABORATORY Clinical History Ganglion Cyst 4 12:43 PM [facility] DERMATOPATHOLOGY LABORATORY Gross Description Specimen A: Received is one formalin filled container labeled with the patient's name and designated right dorsal foot. The specimen consists of two (2) pieces of skin measuring 17x6x3 mm. The specimen is serially sectioned and a office services representative section is submitted in cassette 1. Jar 1. 4 12:43 PM [facility] DERMATOPATHOLOGY LABORATORY Microscopic Description Specimen A. SKIN, right dorsal foot: In the dermis, there is a deposit of mucin surrounded by superficial portions of compressed fibrous tissue. 4 12:43 PM [facility] DERMATOPATHOLOGY LABORATORY Disclaimer An external and internal positive and negative controls are appropriate for the histochemical, immunohistochemical and immunofluorescence stain(s) in this case (if any), except where stated explicitly. The performance characteristics of the stain(s) cited in this report were developed and its performance characteristic determined by the Dermatopathology Laboratory at [facility], directed by Dr. Adrian Dunbar. These tests need not be, and therefore are not, approved by the [place] Food and Drug Administration. The tests are used for clinical purposes. Billing Codes Specimen Charges Stain Charges 32512 1 4 12:43 PM [facility] DERMATOPATHOLOGY LABORATORY Embedded Images 12:43 PM [facility] DERMATOPATHOLOGY LABORATORY Pathology/Cytolo gy TISSUE SPECIMEN FROM SKIN / Unknown 07/05/2023 3:33 AM BEVERAGE INSPECTION MACHINE TENDER 07/06/2023 1:09 PM BEVERAGE INSPECTION MACHINE TENDER Lexii Abbott MD LAB - PATHOLOGY/CYTO LOGY ORDERABLES DERMATOPATHOLOGY LABORATORY [facility] - Department of Dermatology [address], [address] [phone] documented in this encounter Visit Diagnoses Diagnosis Neoplasm of uncertain behavior of skin Other disturbances of skin sensation documented in this encounter
--- OUTSIDE RECORDS SUMMARY | 2024-08-19 13:08 | XMS_ITS | Continuity of Care Document ---
Author Organization [facility] Address [address] [place] [address] Phone Care Team Providers Care Director Operating Room Name Role Phone Nolvia Medellin MD Unavailable Unavailable Advance Directives Directive Yes / No Effective Date File Name No Information Encounters Encounter Description Practice Location Reason(s) For Visit Diagnoses Date Provider Providers Copied on Encounter [facility], [address], [place], [place], [id number], tel:[phone] [facility] No Information Lacie De Souza. [address] [place] [address], [id number], . tel:[phone] Family History Family Member Type Diagnosis Age At Onset No Information Payers Payer name Insurance type Covered constitution party ID Authoriza tion(s) MEDICARE [id number] Social History Type Description Quantity Date Captured [...]
--- OUTSIDE RECORDS SUMMARY | 2024-08-19 13:08 | XMS_ITS | Referral Summary ---
Author Organization [facility] Address [address] [place] [address] Care Team Providers Care Automatic Serging Machine Operator Name Role Phone Unavailable Primary Care Provider Unavailabl e Source Comments [facility],non-owned Affiliates and Associated Physician Practices is amultiple site organization consisting of ambulatory clinics and hospital sitesin [place], [place], [place] and [place]. This disclosure is being madepursuant to the Care Everywhere program and may not contain all information available regarding this patient. Last updated 18.[facility] Social History Tobacco Use Types Packs/Day Years Used Date Smoking Tobacco: Never Assessed Sex and Gender Information Value Date Recorded Sex Assigned at Not on file Gender Identity Not on file Sexual Orientation Not on file Plan of Treatment Not on file
== END 2024-08-18 11:58 | disposition home or self-care (01) ==
LOC: ANHLAB 08-19 11:58
PROVIDERS: PCP Family Medicine; Visit Provider Internal Medicine Gastroenterology
DX: D12.0 Benign neoplasm of cecum (principal); Z12.11 Encounter for screening for malignant neoplasm of colon
CPT/HCPCS: 88305

== ENCOUNTER 2024-08-22 09:43 | Outpatient (CLI) | payer MEDICARE, OTHER, SELFPAY ==
--- NOTE | ~2024-08-22 | CT_ITS ---
EXAMINATION: CT abdomen pelvis w con DATE: 08/22/2024 10:12 INDICATION: Low abdominal pain, unspecified. TECHNIQUE: Computed tomography (CT) of the abdomen and pelvis was performed with 100 mL Omnipaque 350 intravenous contrast. Automated exposure control and iterative reconstruction technique were employe d. The dose-length product was 886.86 mGy-cm. COMPARISON: CT abdomen and pelvis 08/31/2017 FINDINGS: The visualized portions of the lung bases demonstrate mild atelectasis. No pleural effusion . The heart size is normal. There are coronary artery calcifications. No pericardial effusion. The li mady, gallbladder, and pancreas are normal. Calcifications in the spleen are consistent with old granu lomatous disease. The adrenal glands are normal. There are cysts in the kidneys measuring up to 4.4 c m on the left. The prostate is moderately enlarged. There is a left inguinal hernia containing fat. T here are no dilated loops of bowel. The appendix is normal. There are no pathologically enlarged lymp h nodes. There is no free intraperitoneal fluid. There is mild thoracic and lumbar spondylosis. IMPRESSION: 1. Left inguinal hernia containing fat. Reviewed, dictated and finalized at location A. AZZO ROLLER
--- OUTSIDE RECORDS SUMMARY | 2024-08-22 09:48 | XMS_ITS | Patient Health Summary ---
Author Organization [facility] Address [address] [place] [address] Care Team Providers Care Coke Inspector Name Role Phone Unavailable Primary Care Provider Unavailabl e Note from [facility],non-owned Affiliates and Associated Physician Practices is amultiple site organization consisting of ambulatory clinics and hospital sitesin [place], [place], [place] and [place]. This disclosure is being madepursuant to the Care Everywhere program and may not contain all information available regarding this patient. Last updated 18.[facility] Social History Tobacco Use Types Packs/Day Years Used Date Smoking Tobacco: Never Assessed Sex and Gender Information Value Date Recorded Sex Assigned at Not on file Gender Identity Not on file Sexual Orientation Not on file Procedures * DERMATOPATHOLOGY(Performed 07/05/2023) Performed for Neoplasm of uncertain behavior of skin, Other disturbances of skin sensation Results * DERMATOPATHOLOGY (07/05/2023 3:33 AM FORMS ANALYST) Case Report Dermatopathology Report Case: [id number] Authorizing Provider: Lexii Abbott MD Collected: 07/05/2023 03:33 AM Ordering Location: [facility] DermPath Lab Received: 07/06/2023 01:09 PM Pathologist: Trudy Yeung MD Specimen: Skin, right dorsal foot 12:43 PM [facility] DERMATOPATHOLOGY LABORATORY Final Diagnosis Specimen A. SKIN, right dorsal foot: GANGLION CYST, SUPERFICIAL PORTIONS OF (M67.40) (see microscopic description) 12:43 PM FORMS ANALYST DERMATOPATHOLOGY LABORATORY Clinical History Ganglion Cyst 12:43 PM [facility] DERMATOPATHOLOGY LABORATORY Gross Description Specimen A: Received is one formalin filled container labeled with the patient's name and designated right dorsal foot. The specimen consists of two (2) pieces of skin measuring 17x6x3 mm. The specimen is serially sectioned and a workforce services representative section is submitted in cassette [...] characteristic determined by the Dermatopathology Laboratory at [facility], directed by Dr. Adrian Dunbar. These tests need not be, and therefore are not, approved by the [place] Food and Drug Administration. The tests are used for clinical purposes. Billing Codes Specimen Charges Stain Charges 15994 1 4 12:43 PM [facility] DERMATOPATHOLOGY LABORATORY Embedded Images 4 12:43 PM [facility] DERMATOPATHOLOGY LABORATORY Pathology/Cytolo gy TISSUE SPECIMEN FROM SKIN / Unknown 07/05/2023 3:33 AM FORMS ANALYST 07/06/2023 1:09 PM FORMS ANALYST Lexii Abbott MD LAB - PATHOLOGY/CYTO LOGY ORDERABLES DERMATOPATHOLOGY LABORATORY [facility] - Department of Dermatology [facility] Medicine [address] [place] [address], [address] [phone]
--- OUTSIDE RECORDS SUMMARY | 2024-08-22 09:48 | XMS_ITS | Continuity of Care Document ---
Author Organization [facility] Address [address] [place] [address] Phone Care Team Providers Care Retail Loss Prevention Investigator Name Role Phone Nolvia Medellin MD Unavailable Unavailable Advance Directives Directive Yes / No Effective Date File Name No Information Encounters Encounter Description Practice Location Reason(s) For Visit Diagnoses Date Provider Providers Copied on Encounter [facility], [address], [place], [place], [id number], tel:[phone] [facility] No Information Lacie De Souza. [address] [place] [address], [id number], . tel:[phone] Family History Family Member Type Diagnosis Age At Onset No Information Payers Payer name Insurance type Covered alliance party ID Authoriza tion(s) MEDICARE [id number] Social History Type Description Quantity Date Captured [...]
--- OUTSIDE RECORDS SUMMARY | 2024-08-22 09:48 | XMS_ITS | Referral Summary ---
Author Organization [facility] Address [address] [place] [address] Care Team Providers Care Bone Process Operator Name Role Phone Unavailable Primary Care Provider Unavailabl e Source Comments [facility],non-owned Affiliates and Associated Physician Practices is amultiple site organization consisting of ambulatory clinics and hospital sitesin [place], [place], [place] and [place]. This disclosure is being madepursuant to the Care Everywhere program and may not contain all information available regarding this patient. Last updated 18.[facility] Social History Tobacco Use Types Packs/Day Years Used Date Smoking Tobacco: Never Assessed Sex and Gender Information Value Date Recorded Sex Assigned at Not on file Gender Identity Not on file Sexual Orientation Not on file Plan of Treatment Not on file
--- OUTSIDE RECORDS SUMMARY | 2024-08-22 09:48 | XMS_ITS | Clinical Summary ---
Author Organization [facility] Address [address] [place] [address] Care Team Providers Care Healthcare Liaison Name Role Phone Ben Flowers MD Unavailable [phone] Ben Flowers MD Primary Care Provider [phone] Allergies Active Allergy Reactions Criticality Noted Date [...] patient's age to complete this topic Insurance [facility] MEDICARE Care Teams Healthcare Liaison Relationship Specialty Start Date End Date Ben Flowers MD [address] [place] [address] PCP - General FAMILY PRACTICE 11/13/23 Ben Flowers MD [address] [place] [address] FAMILY PRACTICE 11/05/23
--- OUTSIDE RECORDS SUMMARY | 2024-08-22 09:48 | XMS_ITS | Clinical Summary ---
Author Organization [facility] Address [address] [place] [address] Care Team Providers Care Ore Sampler Name Role Phone Unavailable Primary Care Provider Unavailabl e Source Comments [facility],non-owned Affiliates and Associated Physician Practices is amultiple site organization consisting of ambulatory clinics and hospital sitesin [place], [place], [place] and [place]. This disclosure is being madepursuant to the Care Everywhere program and may not contain all information available regarding this patient. Last updated 18.[facility] Social History Tobacco Use Types Packs/Day Years [...]
--- OUTSIDE RECORDS SUMMARY | 2024-08-22 09:48 | XMS_ITS | Encounter Summary ---
Author Organization [facility] Address [address] [place] [address] Care Team Providers Care Pump Technician Name Role Phone Unavailable Primary Care Provider Unavailabl e Encounter Details Date Type Department Care Team (Late st Contact Info) Description 07/05/2023 Lab Requisition [facility] - DermPath Lab [address] [place] [address] Lexii Abbott MD [address] [place] [address] [place] [address] Neoplasm of uncertain behavior of [...] Diagnosis Comments DERMATOPATHOLOGY Routine 07/05/2023 3:33 AM SPECIAL DELIVERY CARRIER Neoplasm of uncertain behavior of skin Other disturbances of skin sensation documented in this encounter Results * DERMATOPATHOLOGY (07/05/2023 3:33 AM SPECIAL DELIVERY CARRIER) Case Report Dermatopathology Report Case: [id number] Authorizing Provider: Lexii Abbott MD Collected: 07/05/2023 03:33 AM Ordering Location: [facility] DermPath Lab Received: 07/06/2023 01:09 PM Pathologist: Trudy Yeung MD Specimen: Skin, right dorsal foot 12:43 PM SPECIAL DELIVERY CARRIER DERMATOPATHOLOGY LABORATORY Final Diagnosis Specimen A. SKIN, right dorsal foot: GANGLION CYST, SUPERFICIAL PORTIONS OF (M67.40) (see microscopic description) 12:43 PM [facility] DERMATOPATHOLOGY LABORATORY Clinical History Ganglion Cyst 4 12:43 PM [facility] DERMATOPATHOLOGY LABORATORY Gross Description Specimen A: Received is one formalin filled container labeled with the patient's name and designated right dorsal foot. The specimen consists of two (2) pieces of skin measuring 17x6x3 mm. The specimen is serially sectioned and a field representatives director section is submitted in cassette 1. Jar 1. 4 12:43 PM [facility] DERMATOPATHOLOGY LABORATORY Microscopic Description Specimen A. SKIN, right dorsal foot: In the dermis, there is a deposit of mucin surrounded by superficial portions of compressed fibrous tissue. 4 12:43 PM [facility] DERMATOPATHOLOGY LABORATORY Disclaimer An external and internal positive and negative controls are appropriate for the histochemical, immunohistochemical and immunofluorescence stain(s) in this case (if any), except where stated explicitly. The performance characteristics of the stain(s) cited in this report were developed and its performance characteristic determined by the Dermatopathology Laboratory at [facility], directed by Dr. Adrian Dunbar. These tests need not be, and therefore are not, approved by the [place] Food and Drug Administration. The tests are used for clinical purposes. Billing Codes Specimen Charges Stain Charges 38662 1 4 12:43 PM [facility] DERMATOPATHOLOGY LABORATORY Embedded Images 12:43 PM [facility] DERMATOPATHOLOGY LABORATORY Pathology/Cytolo gy TISSUE SPECIMEN FROM SKIN / Unknown 07/05/2023 3:33 AM SPECIAL DELIVERY CARRIER 07/06/2023 1:09 PM SPECIAL DELIVERY CARRIER Lexii Abbott MD LAB - PATHOLOGY/CYTO LOGY ORDERABLES DERMATOPATHOLOGY LABORATORY [facility] - Department of Dermatology [address] [phone] documented in this encounter Visit Diagnoses Diagnosis Neoplasm of uncertain behavior of skin Other disturbances of skin sensation documented in this encounter
== END 2024-08-22 09:44 | disposition home or self-care (01) ==
PROVIDERS: PCP Family Medicine; Visit Provider Family Medicine
DX: R10.30 Lower abdominal pain, unspecified (principal); K40.90 Unilateral inguinal hernia, without obstruction or gangrene, not specified as recurrent
CPT/HCPCS: 74177; Q9967

== ENCOUNTER 2025-04-10 08:18 | Outpatient (CLI) | payer MEDICARE, OTHER, SELFPAY ==
--- OUTSIDE RECORDS SUMMARY | 2018-01-18 03:38 | XMS_ITS | Continuity of Care Document ---
Author Organization [facility] Address [address] [place] [address] Phone Care Team Providers Care Screw Machine Repairer Name Role Phone Nolvia Medellin MD Unavailable Unavailable Advance Directives Directive Yes / No Effective Date File Name No Information Encounters Encounter Description Practice Location Reason(s) For Visit Diagnoses Date Provider Providers Copied on Encounter [facility], [address], [place], [place], [id number], tel:[phone] [facility] No Information Lacie De Souza. [address] [place] [address], [id number], . tel:[phone] Family History Family Member Type Diagnosis Age At Onset No Information Payers Payer name Insurance type Covered green party ID Authoriza tion(s) MEDICARE [id number] Social History Type Description Quantity Date Captured Comments Sex Male Smoking Status No Information Chief Complaint And Reason For Visit No Information Reason For Referral Reason For Referral No Information History Of Present Illness Encounter Date Complaint History Of Prese nt Illness No Information Functional Status Date Functional Assessmen t No Information Instructions Date Instruction Additional Infor mation No Information Assessments Type Assessment Date No Information Patient Care Teams Name Effective Dates (start - stop) Status Members No Information
--- OUTSIDE RECORDS SUMMARY | 2025-04-10 08:26 | XMS_ITS | Encounter Summary ---
Author Organization [facility] Address [address] [facility] [place] [address] Care Team Providers Care Sulky Driver Name Role Phone Unavailable Primary Care Provider Unavailabl e Encounter Details Date Type Department Care Team (Late st Contact Info) Description 07/05/2023 Lab Requisition [facility] - DermPath Lab [address] [facility] [facility], [place] [address] Lexii Abbott MD [address] [place] [address] [place] [address] Neoplasm of uncertain behavior of skin; Other disturbances of skin sensation Social History Tobacco Use Types Packs/Day Years Used Date Smoking Tobacco: Never Assessed Sex and Gender Information Value Date Recorded Sex Assigned at Not on file Legal Sex Male 12:25 PM PARKING PATROLLER Gender Identity Not on file Sexual Orientation Not on file documented as of this encounter Plan of Treatment Not on file documented as of this encounter Procedures Procedure Name Priority Date/Time Associated Diagnosis Comments DERMATOPATHOLOGY Routine 07/05/2023 3:33 AM PARKING PATROLLER Neoplasm of uncertain behavior of skin Other disturbances of skin sensation documented in this encounter Results * DERMATOPATHOLOGY (07/05/2023 3:33 AM PARKING PATROLLER) Case Report Dermatopathology Report Case: [id number] Authorizing Provider: Lexii Abbott MD Collected: 07/05/2023 03:33 AM Ordering Location: [facility] DermPath Lab Received: 07/06/2023 01:09 PM Pathologist: Trudy Yeung MD Specimen: Skin, right dorsal foot 12:43 PM PARKING PATROLLER DERMATOPATHOLOGY LABORATORY Final Diagnosis Specimen A. SKIN, right dorsal foot: GANGLION CYST, SUPERFICIAL PORTIONS OF (M67.40) (see microscopic description) 12:43 PM PARKING PATROLLER DERMATOPATHOLOGY LABORATORY at 1243 PARKING PATROLLER Clinical History Ganglion Cyst 4 12:43 PM [facility] DERMATOPATHOLOGY LABORATORY Gross Description Specimen A: Received is one formalin filled container labeled with the patient's name and designated right dorsal foot. The specimen consists of two (2) pieces of skin measuring 17x6x3 mm. The specimen is serially sectioned and a textile designs sales representative section is submitted in cassette 1. Jar 1. 12:43 PM [facility] DERMATOPATHOLOGY LABORATORY Microscopic Description Specimen A. SKIN, right dorsal foot: In the dermis, there is a deposit of mucin surrounded by superficial portions of compressed fibrous tissue. 12:43 PM [facility] DERMATOPATHOLOGY LABORATORY Disclaimer An external and internal positive and negative controls are appropriate for the histochemical, immunohistochemical and immunofluorescence stain(s) in this case (if any), except where stated explicitly. The performance characteristics of the stain(s) cited in this report were developed and its performance characteristic determined by the Dermatopathology Laboratory at [facility], directed by Dr. Adrian Dunbar. These tests need not be, and therefore are not, approved by the [place] Food and Drug Administration. The tests are used for clinical purposes. Billing Codes Specimen Charges Stain Charges 24845 1 4 12:43 PM [facility] DERMATOPATHOLOGY LABORATORY Embedded Images 12:43 PM [facility] DERMATOPATHOLOGY LABORATORY Pathology/Cytolo gy TISSUE SPECIMEN FROM SKIN / Unknown 07/05/2023 3:33 AM PARKING PATROLLER 07/06/2023 1:09 PM [facility] us Lexii Abbott MD LAB - PATHOLOGY/CYTOLOGY ORDERAB LES Final Result DERMATOPATHOLOGY LABORATORY [facility] - Department of Dermatology [address], [address] [phone] documented in this encounter Visit Diagnoses Diagnosis Neoplasm of uncertain behavior of skin Other disturbances of skin sensation documented in this encounter
--- OUTSIDE RECORDS SUMMARY | 2025-04-10 08:26 | XMS_ITS | Clinical Summary ---
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 Role Phone Ben Flowers MD Unavailable [phone] Ben Flowers MD Primary Care Provider [phone] Allergies Active Allergy Reactions Criticality Noted Date [...] Td Vaccines ( 1 - Tdap) 1971 Pneumococcal Vaccine: 50+ Ye ars (1 of 1 - PCV) 2002 Zoster Vaccines (1 of 2) 2002 Annual Medicare Wellness Visit 2017 COVID-19 Vaccine ( - 2023-2 5 season) 2025 Influenza Adult (#1) 2025 RSV Immunization or 60+ Years (1 - 1-dose 75+ series) 2027 Meningococcal B Vaccine Aged Out No l onger eligible based on patient's age to complete this topic Meningococcal Vaccine Aged Out No kala marianne eligible based on patient's age to complete this topic RSV Immunizations Under 20 Months Aged Out No longer eligible based on patient's age to complete this topic Insurance [facility] Care Teams Poultry Farm Laborer Relationship Specialty Start Date End Date Ben Flowers MD [address] [place] [address] PCP - General FAMILY PRACTICE 11/13/23 Ben Flowers MD [address] [address] FAMILY PRACTICE 11/05/23
--- OUTSIDE RECORDS SUMMARY | 2025-04-10 08:26 | XMS_ITS | Clinical Summary ---
Author Organization [facility] Address [address] [facility] [place] [address] Care Team Providers Care Auto Body Repair Technician Name Role Phone Unavailable Primary Care Provider Unavailabl e Source Comments [facility],non-owned Affiliates and Associated Physician Practices is amultiple site organization consisting of ambulatory clinics and hospital sitesin [place], [place], [place] and [place]. This disclosure is being madepursuant to the Care Everywhere program and may not contain all information available regarding this patient. 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 Gender Identity Not on file Sexual Orientation [...] 2002 ZOSTER VACCINE (1 of 2) 2002 DEPRESSION SCREENING 07/09/2024 COVID-19 VACCINE (1 - 2023-2 5 season) 2025 INFLUENZA VACCINE (#1) 2025 Respiratory Syncytial Virus (RSV) Vaccine Pt: or [...] to complete this topic MENINGOCOCCAL (Group B) VACC INE SHARED DECISION-MAKING Aged Out No longer eligibl e based on patient's age to complete this topic MENINGOCOCCAL GROUPS A/C/Y/W VACCINE Aged Out No longer eligible b ased on patient's age to complete this topic Procedures Procedure Name Priority Date/Time Associated Diagnosis Comments DERMATOPATHOLOGY Routine 01/12/2025 12:0 0 AM CDT from Last 3 Months Results * DERMATOPATHOLOGY (01/12/2025 12:00 AM CDT) Case Report Dermatopathology Report Case: [id number] Authorizing Provider: Ben Flowers MD Collected: 01/12/2025 12:00 AM Ordering Location: [facility] - Received: 01/14/2025 07:47 AM DermPath Lab Pathologist: Trudy Yeung MD Specimen: Skin, left upper back 4:32 PM CDT DERMATOPATHOLOGY LABORATORY Final Diagnosis Specimen A. SKIN, left upper back: SEBORRHEIC KERATOSIS (L82.1) PRESENT AT MARGIN 4:32 PM CDT DERMATOPATHOLOGY LABORATORY at 1632 CDT Clinical History Changing Lesion. Check margins 4:32 PM CDT DERMATOPATHOLOGY LABORATORY Gross Description Specimen A: Received is one formalin filled container labeled with the patient's name and designated left upper back. The specimen consists of a shave biopsy measuring 7x6x1 mm. Jar 0. 4:32 PM CDT DERMATOPATHOLOGY LABORATORY Microscopic Description Specimen A. SKIN, left upper back: Sections show an acanthotic lesion composed of relatively uniform keratinocytes. There is hyperkeratosis and pseudo horn cysts formation. This lesion is present at the margin of the specimen. 5 4:32 PM CDT DERMATOPATHOLOGY LABORATORY Disclaimer An external and internal positive and negative controls are appropriate for the histochemical, immunohistochemical and immunofluorescence stain(s) in this case (if any), except where stated explicitly. The performance characteristics of the stain(s) cited in this report were developed and its performance characteristic determined by the Dermatopathology Laboratory at [facility], directed by Dr. Adrian Dunbar. These tests need not be, and therefore are not, approved by the [place] Food and Drug Administration. The tests are used for clinical purposes. Billing Codes Specimen Charges Stain Charges 23507 1 5 4:32 PM CDT DERMATOPATHOLOGY LABORATORY Embedded Images 4:32 PM CDT DERMATOPATHOLOGY LABORATORY Pathology/Cytolog y TISSUE SPECIMEN FROM SKIN / Unknown 01/12/2025 01/14/2025 7:47 AM CDT Benmela Flowers MD LAB - PATHOLOGY/CYTOLOGY DIDI RODRIGUEZ Final Result DERMATOPATHOLOGY LABORATORY [facility] - Department of Dermatology [facility] [address] [place] [address], [address] [phone] from Last 3 Months Insurance MEDICARE [facility] RISK SELF PAY NO INSURANCE Member Subscriber Plan / Payer (Ef fective for All Dates) Name:Wade Jimenez Member ID:Not on file Relation to Subscriber:Not on file Name:WADE JIMENEZ Subscriber ID:Not on file (Home) Address: [address] [place] [address] Payer ID:Not on file Group ID:Not on file Type:Self Pay Address: [place], [place]
--- OUTSIDE RECORDS SUMMARY | 2025-04-10 08:26 | XMS_ITS | Encounter Summary ---
Author Organization [facility] Address [address] [facility] [place] [address] Care Team Providers Care Human Resource Adviser Name Role Phone Unavailable Primary Care Provider Unavailabl e Encounter Details Date Type Department Care Team (Late st Contact Info) Description 01/14/2025 Lab Requisition [facility] - DermPath Lab [address] [facility] [place] [id number] Ben Flowers MD [address] [place] [address] Social History Tobacco Use Types Packs/Day Years Used Date Smoking Tobacco: Never Assessed Sex and Gender Information Value Date Recorded Sex Assigned at Not on file 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 - Received: 01/14/2025 07:47 AM DermPath Lab [...] present at the margin of the specimen. 4:32 PM CDT DERMATOPATHOLOGY LABORATORY Disclaimer An external and internal positive and negative controls are appropriate for the histochemical, immunohistochemical and immunofluorescence stain(s) in this case (if any), except where stated explicitly. The performance characteristics of the stain(s) cited in this report were developed and its performance characteristic determined by the Dermatopathology Laboratory at [facility], directed by Dr. Adrian Dunbar. These tests need not be, and therefore are not, approved by the [place] Food and Drug Administration. The tests are used for clinical purposes. Billing Codes Specimen Charges Stain Charges 37992 1 4:32 PM CDT DERMATOPATHOLOGY LABORATORY Embedded Images 4:32 PM CDT DERMATOPATHOLOGY LABORATORY Pathology/Cytolog y TISSUE SPECIMEN FROM SKIN / Unknown 01/12/2025 01/14/2025 7:47 AM CDT us Benmela Flowers MD LAB - PATHOLOGY/CYTOLOGY DIDI RODRIGUEZ Final Result DERMATOPATHOLOGY LABORATORY [facility] - Department of Dermatology [address] [place] [address], [facility] [phone] documented in this encounter Visit Diagnoses Not on filedocumented in this encounter
[2025-04-10 14:00] LABS: Alanine Aminotransferase 43 U/L (6-50); Anion Gap 8 mmol/L (4-12); Blood Urea Nitrogen 23 mg/dL (9-20); Calcium 9.3 mg/dL (8.4-10.2); Carbon Dioxide 24 mmol/L (22-30); Chloride 107 mmol/L (98-107); Cholesterol 208 mg/dL (0-200); Estimated Glomerular Filt Rate > 60; Glucose 83 mg/dL (65-110); HDL Direct 51 mg/dL; Potassium 4.2 mmol/L (3.4-5.0); Sodium 139 mmol/L (137-145); Triglycerides 108 mg/dL (<150)
== END 2025-04-10 08:19 | disposition home or self-care (01) ==
LOC: ANHGOSHLAB 08:21
PROVIDERS: PCP Family Medicine; Visit Provider Internal Medicine Cardiovascular Disease
DX: E78.5 Hyperlipidemia, unspecified (principal); I10 Essential (primary) hypertension; I25.10 Atherosclerotic heart disease of native coronary artery without angina pectoris; I71.21 Aneurysm of the ascending aorta, without rupture; R00.2 Palpitations
CPT/HCPCS: 36415; 80048; 80061; 84460